=== PATIENT | female | born 1955 | race Caucasian/White ===

== ENCOUNTER 2018-12-26 06:18 | Day surgery (SDC) | payer MEDICARE ==
[2018-12-17 16:03] VITALS: BP 160/86
[2018-12-17 16:08] LABS: BASOPHILS % (AUTO) 0.6 % (0.0-5.0); HEMATOCRIT 39.8 % (36-48); LYMPHOCYTES % (AUTO) 27.1 % (21.0-51.0); MEAN CORPUSCULAR HEMOGLOBIN 30.2 pg (27.0-33.0); MEAN CORPUSCULAR VOLUME 91.4 fL (79-99); MONOCYTES % (AUTO) 7.6 % (3.0-13.0); NEUTROPHILS % (AUTO) 63.7 % (40.0-77.0); PLATELET COUNT (AUTO) 284 K/uL (130-400); RED BLOOD CELL COUNT(AUTO) 4.36 MIL/uL (4.00-5.50); RED CELL DISTRIBUTION WIDTH 14.1 % (11.0-15.5); WHITE BLOOD COUNT (AUTO) 6.3 K/uL (4.8-10.8)
[2018-12-17 16:22] LABS: CREATININE 0.8 mg/dL (0.5-1.5); POTASSIUM 4.1 mmol/L (3.5-5.1)
[~2018-12-26] VITALS: Ht 161.3 cm; Wt 63.0 kg
[2018-12-26] VITALS (12 sets, daily range): BP systolic 105–148; BP diastolic 52–72
[~2018-12-26 06:18] MED LIST: BIOTIN PO; GLUC-145 PO; LUTEIN PO; MULTIVITAMIN PO; OSPE60TA2 PO; VITAMIN D PO; VITAMIN E PO; [UNRECOGNIZED DRUG - OTHER] PO
[2018-12-26] MEDS ORDERED: CLINDAMYCIN 900 MG/D5% WATER 50 ML IV ONE (06:44)
[2018-12-26] MEDS ORDERED: LACTATED RINGERS 1000ML 1,000 ML IV ONE (06:44)
[2018-12-26] MEDS ORDERED: BUPIVACAINE/EPI/PF 0.25% 50 ML VIAL ONE (06:57)
--- NOTE | 2018-12-26 07:03 | NUR ---
PAIN denies pain today ,right knee locked up ping 5 times in the last month ,uses crutches when knee locks up Addendum: 12/26/18 at 0705 by BEL PISANO RN RN Amended: Links added.
[2018-12-26] MEDS ORDERED: SUCCINYLCHOLINE 200MG/10ML SYR ONE (07:24)
[2018-12-26] MEDS ORDERED: MIDAZOLAM HCL 1 MG/ML 2ML VIAL ONE (07:24)
[2018-12-26] MEDS ORDERED: ONDANSETRON HCL 4 MG/2 ML VIAL ONE (07:24)
[2018-12-26] MEDS ORDERED: DEXAMETHASONE SOD PHOSPHATE 10MG/ML 1ML VIAL ONE (07:24)
[2018-12-26] MEDS ORDERED: NEOSTIGMINE 5MG/5ML SYR IV ONE (07:24)
[2018-12-26] MEDS ORDERED: LIDOCAINE PF 2% 5ML ABBOJECT ONE ×2 (07:24→07:25)
[2018-12-26] MEDS ORDERED: PROPOFOL 10 MG/ML 20ML VIAL IV ONE (07:24)
[2018-12-26] MEDS ORDERED: GLYCOPYRROLATE 1 MG/5 ML SYRINGE ONE (07:24)
[2018-12-26] MEDS ORDERED: PHENYLEPHRINE HCL 10 MG/ML 1ML VIAL IV ONE (07:25)
[2018-12-26] MEDS ORDERED: ROCURONIUM 10MG/1ML SYR 10 MG/ML ML ONE (07:25)
[2018-12-26] MEDS ORDERED: FENTANYL CITRATE PF 50 MCG/1 ML 2ML VIAL ONE (07:25)
[2018-12-26] MEDS ORDERED: CEFAZOLIN SODIUM 1 GM VIAL IVP ONE (08:00)
[2018-12-26] MEDS ORDERED: LIDOCAINE HCL 1% 20 ML VIAL ONE (08:10)
[2018-12-26] MEDS ORDERED: MORPHINE SULFATE 2 MG/ML 1ML SYG ONE ×2 (08:55→08:56)
--- NOTE | 2018-12-26 09:35 | NUR ---
RECEIVED AWAKE WITH NO COMPLAINTS,JASMYN WRAP INTACT ,CALL [facility] IN [place]ACH
--- NOTE | 2018-12-26 10:25 | NUR ---
UP TO CHAIR ,DOES WELL ,NO COMPLAINTS OF PAIN ,INSTRUCTIONS TO SPOUSE ,STATES HAS USED CRUTCHES BEFORE ,NO PROBLEM WITH THEM,,DID PROVIDED FOR HER ,TO CAR VIA W/C
== END 2018-12-26 10:25 ==
LOC: DAH 06:18
PROVIDERS: ATTEND Orthopaedic Surgery
DX: S83.251A Bucket-handle tear of lateral meniscus, current injury, right knee, initial encounter (principal); X58.XXXA Exposure to other specified factors, initial encounter; Y93.73 Activity, racquet and hand sports; Y92.89 Other specified places as the place of occurrence of the external cause; Y99.9 Unspecified external cause status; M22.41 Chondromalacia patellae, right knee; Z79.899 Other long term (current) drug therapy; Z88.8 Allergy status to other drugs, medicaments and biological substances; Z98.890 Other specified postprocedural states
CPT/HCPCS: 29881; 36415; 80048; 85025; A4248; A4606; A4649 ×2; A4930; A6223; J0330; J1100; J2001 ×2; J2250; J2370; J2405; J2704; J2710; J3010; J3490 ×2; J7120 ×2

== ENCOUNTER 2020-11-13 09:55 | Emergency (ER) | payer MEDICARE ==
[2020-11-13 10:13] LABS: BASOPHILS % (AUTO) 0.3 % (0.0-5.0); HEMATOCRIT 44.3 % (36-48); LYMPHOCYTES % (AUTO) 32.5 % (21.0-51.0); MEAN CORPUSCULAR HEMOGLOBIN 29.7 pg (27.0-33.0); MEAN CORPUSCULAR HGB CONC 33.2 g/dL (32.0-36.0); MEAN CORPUSCULAR VOLUME 89.5 fL (79-99); MONOCYTES % (AUTO) 11.8 % (3.0-13.0); NEUTROPHILS % (AUTO) 54.2 % (40.0-77.0); PLATELET COUNT (AUTO) 240 K/uL (130-400); RED BLOOD CELL COUNT(AUTO) 4.95 MIL/uL (4.00-5.50); RED CELL DISTRIBUTION WIDTH 12.3 % (11.0-15.5); WHITE BLOOD COUNT (AUTO) 5.9 K/uL (4.8-10.8)
[2020-11-13] MEDS ORDERED: SODIUM CHLORIDE 0.9% 1000ML 1,000 ML IV ONE (10:27)
[2020-11-13 10:28] LABS: APPEARANCE,URINE Clear (CLEAR); BILIRUBIN,URINE Negative (NEGATIVE); COLOR,URINE Yellow (YELLOW); GLUCOSE, URINE (UA) Negative (NEGATIVE); KETONES,URINE Negative (NEGATIVE); LEUKOCYTE ESTERASE ,URINE Small (NEGATIVE); NITRATE,URINE Negative (NEGATIVE); OCCULT BLOOD,URINE Negative (NEGATIVE); PROTEIN,URINE Negative (NEGATIVE); UROBILINOGEN,URINE 0.2 mg/dL (0.2-1.0)
[2020-11-13 10:33] LABS: CREATININE 0.9 mg/dL (0.5-1.5); POTASSIUM 4.3 mmol/L (3.5-5.1)
[2020-11-13 10:36] LABS: INR 0.93 (0.85-1.15); PROTHROMBIN TIME 10.2 SEC (9.6-11.6)
[2020-11-13 10:36] LABS: AMPHET/METH SCREEN,URINE NEGATIVE (NEGATIVE); BARBITURATE SCREEN, URINE NEGATIVE (NEGATIVE); BENZODIAZEPINES SCREEN,URINE NEGATIVE (NEGATIVE); CANNABINOID SCREEN,URINE NEGATIVE (NEGATIVE); COCAINE SCREEN,URINE NEGATIVE (NEGATIVE); OPIATE SCREEN,URINE NEGATIVE (NEGATIVE); PHENCYCLIDINE SCREEN,URINE NEGATIVE (NEGATIVE)
[2020-11-13 10:38] LABS: PARTIAL THROMBOPLASTIN TIME 24.7 SEC (26.3-35.5)
[2020-11-13 11:01] LABS: BACTERIA,URINE Many /HPF (None Seen); RBC,URINE None Seen /HPF (0-1); SQUAMOUS EPITHELIAL CELL,UR Few /HPF (0-2)
== END 2020-11-13 14:40 | disposition home or self-care (01) ==
LOC: EDH 09:55
DX: U07.1 COVID-19 (principal); I49.1 Atrial premature depolarization; R79.1 Abnormal coagulation profile; E86.0 Dehydration; Z88.1 Allergy status to other antibiotic agents; Z87.891 Personal history of nicotine dependence
CPT/HCPCS: 36415; 71045; 80048; 80305; 81001; 82728; 83605; 84484 ×2; 85025; 85378; 85610; 85730; 87088; 87426; 93005 ×2; 96360; 96361; 99285; J7030